=== PATIENT | male | born 1985 | race Caucasian/White ===

== ENCOUNTER 2016-04-23 17:20 | Emergency (ER) | payer OTHER ==
[2016-04-23 17:26] VITALS: BP 154/94; PULSE 89; TEMP 98.9; BMI 27.8
--- NOTE | 2016-04-23 17:48 | PDOC ---
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 Patient states left ankle is now swollen and is unable to walk on it. Patient states took nothing for the pain and came directly to the ER. Patient denies any sensory changes distally or previous injury to the affected area. Occurred: reports: this morning Severity: reports: moderate Pain Location: reports: lower extremity Method of Injury: Yes: fall Modifying Factors: improves with: None Loss of Consciousness: no loss of consciousness Associated Symptoms (Fall): trouble walking Past History - Past Medical History Allergies/Adverse Reactions: Allergies Allergy/AdvReac Type Severity Reaction Status Date / Time No Known Allergies Allergy Verified 04/23/16 17:26 Home Medications: Ambulatory Orders Oxycodone HCl/Acetaminophen [Percocet 5-325 mg Tablet] 1 - 2 tab PO Q6H PRN #12 tab MDD 4 04/23/16 Other medical history: NONE - Psycho/Social/Smoking Cessation Hx Anxiety: No Suicidal Ideation: No Smoking History: Never smoked Hx Alcohol Use: Yes (SOCIAL) Drug/Substance Use Hx: No Substance Use Type: None Review of Systems - Review of Systems Able to Perform ROS?: Yes Constitutional: No: Symptoms Reported : No: Symptoms Reported Musculoskeletal: Yes: Joint Pain (left ankle) Integumentary: Yes: Symptoms Reported, Erythema (and swelling to left ankle) Neurological: No: Symptoms reported, Tingling, Weakness *Physical Exam - Vital Signs Last Vital Signs Temp Pulse Resp BP Pulse Ox 98.9 F 89 20 154/94 98 04/23/16 17:23 04/23/16 17:23 04/23/16 17:23 04/23/16 17:23 04/23/16 17:23 - Physical Exam General Appearance: Yes: Nourished, Appropriately Dressed. No: Apparent Distress HEENT: positive: EOMI, LIZETH. negative: Pale Conjunctivae Neck: positive: Supple. negative: Tender, Decreased range of motion Vascular Pulses: Doralis-Pedis (L): 2+ Extremity: positive: Normal Capillary Refill, Pedal Edema (dorsal and lateral apect of left foot) Integumentary: positive: Swelling (to medial-lateral malleolus), Ecchymosis Neurologic: positive: Normal Mood/Affect Procedures - Splinting Splint Location: Left: Ankle Hand-Made Type: orthoglass Splint Type: Yes: Posterior Tra Bandage: 3" Good repositioning: Yes ED Treatment Course - RADIOLOGY Radiology Studies Ordered: Category Date Time Status ANKLE & FOOT-LEFT* [RAD] Stat Radiology 04/23/16 17:42 Ordered Medical Decision Making - Medical Decision Making 04/23/16 18:05 Patient status post mechanical fall twisting his left ankle. Patient with swelling and limited range of motion to the medial to ateral aspect of left malleolus. Patient ordered for x-ray of the foot and ankle. Patient also ordered for 600 Motrin. 04/23/16 18:51 x-ray shows a nondisplaced avulsed fracture of the left distal tibia. 04/23/16 18:52 Patient placed in posterior splint and given crutches. Patient to follow up with Dr. Choe on Sunday at 3 PM. *DC/Admit/Observation/Transfer Diagnosis at time of Disposition: Fracture of malleolus Tibia fracture Qualifiers: Encounter type: initial encounter Tibia location: medial malleolus Fracture type: closed Fracture alignment: nondisplaced Laterality: left Qualified Code(s) : S82.55XA - Nondisplaced fracture of medial malleolus of left tibia, initial encounter for closed fracture - Discharge Dispostion Disposition: HOME Condition at time of disposition: Improved - Prescriptions Prescriptions: Oxycodone HCl/Acetaminophen [Percocet 5-325 mg Tablet] 1 - 2 tab PO Q6H PRN #12 tab MDD 4 PRN Reason: Pain - Referrals Referrals: Hector Choe MD [Staff Physician] - - Patient Instructions Printed Discharge Instructions: DI for Malleolar Fracture Additional Instructions: Please follow-up with Dr. choe on Sunday at 3 PM. Use crutches when walking. Elevate your leg and apply ice as much as you can tolerate for the next 3 days. take Motrin 600 mg every 8 hours
[2016-04-23] MEDS ORDERED: IBUPROFEN 600 MG TABLET (FP) PO ONE (18:06)
[2016-04-23] MEDS ORDERED: ACETAMINOPHEN 325 MG TABLET (FP) ONE (19:03)
[2016-04-23] MEDS ORDERED: OXYCODONE/APAP 5/325MG COMBO TABLET ONE (19:04)
[2016-04-23] MEDS ORDERED: OXYCODONE/APAP 5/325MG COMBO TABLET PO ONE (19:10)
[2016-04-23] MEDS ORDERED: ACETAMINOPHEN 325 MG TABLET (FP) PO ONE (19:10)
== END 2016-04-23 19:29 | disposition home or self-care (01) ==
LOC: JERFT 17:20
PROC: 2W3MX1Z Immobilization of Left Lower Extremity using Splint (ICD-10-PCS; principal; 2016-04-23)
DX: S82.55XA Nondisplaced fracture of medial malleolus of left tibia, initial encounter for closed fracture (principal); W00.2XXA Other fall from one level to another due to ice and snow, initial encounter; Y93.89 Activity, other specified; Y92.89 Other specified places as the place of occurrence of the external cause
CPT/HCPCS: 29515; 73610-TC-LT; 73630-TC-LT; 99281-25

== ENCOUNTER 2017-11-28 12:47 | Emergency (ER) | payer OTHER ==
[2017-11-28 13:14] VITALS: BP 128/80; PULSE 82; TEMP 97.9; BMI 27.1
--- NOTE | 2017-11-28 14:34 | PDOC ---
History of Present Illness - General Chief Complaint: Edema Stated Complaint: REVISIT, RT ARM PAIN Time Seen by Provider: 11/28/17 14:21 - History of Present Illness Initial Comments: 31 [id number] male who was seen a few days ago for right elbow fracture presents for evaluation of right upper extremity swelling. He has no increased pain. 11/28/17 14:27 Past History - Past Medical History Allergies/Adverse Reactions: Allergies Allergy/AdvReac Type Severity Reaction Status Date / Time No Known Allergies Allergy Verified 11/28/17 12:53 Home Medications: Ambulatory Orders NK [No Known Home Medication] 11/23/17 COPD: No - Immunization History Immunization Up to Date: Yes - Suicide/Smoking/Psychosocial Hx Smoking History: Never smoked Have you smoked in the past 12 months: No Hx Alcohol Use: No Drug/Substance Use Hx: Yes Substance Use Type: Marijuana Review of Systems - Review of Systems All Other Systems: Reviewed and Negative *Physical Exam - Vital Signs Last Vital Signs Temp Pulse Resp BP Pulse Ox 97.9 F 82 18 128/80 100 11/28/17 13:11 11/28/17 13:11 11/28/17 13:11 11/28/17 13:11 11/28/17 13:11 - Physical Exam Comments: Right arm splint is in place. There is a posterior splint encompassing the right upper arm ending at the wrist. The wrist is free to flex and extend. There is no pain with passive motion of the wrist or fingers. The upper extremity compartments are soft and appropriately tender. There are no gross sensorimotor deficits. Capillary refill in the right upper extremity is less than 2 seconds. He is neurovascularly intact. 11/28/17 14:30 Medical Decision Making - Medical Decision Making The splint was loosened and readjusted elevation was encouraged. 11/28/17 14:31 *DC/Admit/Observation/Transfer Diagnosis at time of Disposition: Elbow fracture, right - Referrals Referrals: Hector Choe MD [Staff Physician] - Tolu Murray MD [Staff Physician] - - Patient Instructions Additional Instructions: Return to the emergency room should his symptoms worsen or go unresolved. Please follow-up with orthopedic surgery next 1-2 days for further evaluation and treatment options. If swelling is normal after an elbow fracture. Please keep the extremity elevated above the level of your heart and continued to do status pumps as shown you in the emergency room. He may take Tylenol for pain - Post Discharge Activity
== END 2017-11-28 14:40 | disposition home or self-care (01) ==
LOC: JERFT 12:47
PROC: 2W3CX1Z Immobilization of Right Lower Arm using Splint (ICD-10-PCS; principal; 2017-11-28)
DX: S42.401A Unspecified fracture of lower end of right humerus, initial encounter for closed fracture (principal); X58.XXXA Exposure to other specified factors, initial encounter; Y93.89 Activity, other specified; Y92.9 Unspecified place or not applicable
CPT/HCPCS: 99281-25

== ENCOUNTER 2019-03-08 20:29 | Emergency (ER) | payer OTHER ==
[2019-03-08 20:33] VITALS: BP 125/95; PULSE 72; TEMP 98; BMI 28.5
--- NOTE | 2019-03-08 20:59 | PDOC ---
History of Present Illness - General Chief Complaint: Nausea/Vomiting Stated Complaint: TO BE SEEN Time Seen by Provider: 03/08/19 20:42 History Source: Patient Exam Limitations: No Limitations - History of Present Illness Initial Comments: 03/08/19 20:53 33-year-old male denies past medical history presents complaining of abdominal cramping, 2 episodes of vomiting, and 2 episodes of nonbloody diarrhea over the past 2 days. Patient reports abdominal cramping began 2 hours after eating fish from [facility] along with 2 episodes of nonbloody vomiting. He typically does not eat fish because in the past it has given him vomiting and diarrhea. Yesterday he had one episode of nonbloody diarrhea and today had another episode of nonbloody diarrhea. He presents requesting 1 liter of IV fluids. Patient is tolerating p.o. denies abdominal pain, nausea, fever, chills , recent travel, urinary complaints or any other symptoms at this time. ROS: GENERAL/CONSTITUTIONAL: No fever, chills, weakness, dizziness HEAD, EYES, EARS, NOSE AND THROAT: No changes in vision, No ear pain or discharge, No sore throat CARDIOVASCULAR: No chest pain RESPIRATORY: No shortness of breath or cough GASTROINTESTINAL: Abdominal cramping, nonbloody vomiting and nonbloody diarrhea GENITOURINARY: No dysuria MUSCULOSKELETAL: No neck or back pain SKIN: No rash NEUROLOGIC: No headache, vertigo, loss of consciousness, or loss of sensation PE: GENERAL: well-appearing, NAD HEAD: NCAT EYES: Pupils equal, round and reactive to light, sclera anicteric, conjunctiva clear ENT: pharynx: no erythema, no exudate, uvula midline NECK: supple CHEST: nontender RESP: clear, no w/r/r CARDIO: rrr, no m/g/r ABD: +BS, soft, nontender, non distended BACK: no midline spinal ttp, no CVAT EXTREMITIES: Normal range of motion, no edema NEUROLOGICAL: Normal speech, normal gait SKIN: Warm, Dry Is this a multiple visit Asthma Patient?: No Past History - Past Medical History Allergies/Adverse Reactions: Allergies Allergy/AdvReac Type Severity Reaction Status Date / Time No Known Allergies Allergy Verified 03/08/19 20:33 Home Medications: Ambulatory Orders NK [No Known Home Medication] 11/23/17 COPD: No - Immunization History Immunization Up to Date: Yes - Psycho Social/Smoking Cessation Hx Smoking History: Never smoked Have you smoked in the past 12 months: No Hx Alcohol Use: No Drug/Substance Use Hx: Yes Substance Use Type: Marijuana *Physical Exam - Vital Signs Last Vital Signs Temp Pulse Resp BP Pulse Ox 98.0 F 72 18 125/95 97 03/08/19 20:31 03/08/19 20:31 03/08/19 20:31 03/08/19 20:31 03/08/19 20:31 Medical Decision Making - Medical Decision Making 03/08/19 20:57 33-year-old male presents with abdominal cramping 2 days ago after eating fish with nonbloody vomiting x2. Had one episode of nonbloody diarrhea yesterday and one episode of diarrhea today. Requesting IV fluids. Tolerating p.o. Advised patient that he does not need IV fluids at this time given that his vital signs are stable, abdominal exam is normal, he is tolerating p.o. and he is well-appearing. Patient agrees to drinking 1 liter of water while in the ED Plan to discharge home with return precautions. Discharge - Discharge Information Problems reviewed: Yes Clinical Impression/Diagnosis: Vomiting and diarrhea Condition: Stable Disposition: HOME - Admission No - Follow up/Referral Referrals: Latanya Alaniz [Primary Care Provider] - - Patient Discharge Instructions Additional Instructions: You are advised to drink plenty of fluids Return to ED immediately if abdominal pain, abdominal distention, fever, chills , nausea, persistent diarrhea and vomiting. Follow-up with your primary care physician within 1 week - Post Discharge Activity
== END 2019-03-08 21:12 | disposition home or self-care (01) ==
LOC: JERFT 20:29
DX: R11.10 Vomiting, unspecified (principal); R19.7 Diarrhea, unspecified
CPT/HCPCS: 99281-25